=== PATIENT | female | born 1965 | race Caucasian/White ===

== ENCOUNTER 2017-12-04 07:47 | Day surgery (SDC) | payer OTHER ==
[2017-12-04 09:23] LABS: ADD MAN DIFF? NO
[2017-12-04 09:26] LABS: BASOPHILS % 0.2 % (0.0-2.0); EOSINOPHILS # 0.2 10^3/ul (0.0-0.5); EOSINOPHILS % 3.6 % (0.0-7.0); HEMATOCRIT 36.6 % (37.0-47.0); HEMOGLOBIN 12.2 g/dl (12.0-16.0); LYMPHOCYTES # 1.9 10^3/ul (0.8-2.9); LYMPHOCYTES % 36.1 % (15.0-51.0); MEAN CORPUSCULAR HEMOGLOBIN 32.4 pg (29.0-33.0); MEAN CORPUSCULAR HGB CONC 33.3 g/dl (32.0-37.0); MEAN CORPUSCULAR VOLUME 97.1 fl (82.0-101.0); MEAN PLATELET VOLUME 12.3 fl (7.4-10.4); MONOCYTE # 0.4 10^3/ul (0.3-0.9); MONOCYTES % 6.8 % (0.0-11.0); NEUTROPHIL # 2.8 10^3/ul (1.6-7.5); NEUTROPHILS % 52.9 % (39.0-77.0); PLATELET COUNT 165 10^3/UL (140-415); RED BLOOD COUNT 3.77 10^6/ul (4.20-5.40); RED CELL DISTRIBUTION WIDTH 12.4 % (11.5-14.5)
[2017-12-04 09:26] LABS: WHITE BLOOD COUNT 5.3 10^3/ul (4.8-10.8)
[2017-12-04] MEDS ORDERED: PROPOFOL 20 ML (12:45)
[2017-12-04] MEDS ORDERED: MIDAZOLAM 1 MG/ML 2 ML INJ (12:45)
[2017-12-04] MEDS ORDERED: ONDANSETRON 4 MG INJ (12:46)
[2017-12-04] MEDS ORDERED: CEFAZOLIN 1 GM INJ (12:46)
[2017-12-04] MEDS ORDERED: METOCLOPRAMIDE 10 MG INJ (12:46)
[2017-12-04] MEDS ORDERED: KETOROLAC 30 MG INJ (13:04)
[2017-12-04] MEDS ORDERED: FENTAnyl 50 MCG/ML VIAL (13:04)
[2017-12-04 13:17] LABS: ADD UMIC YES; UR ASCORBIC ACID NEGATIVE (NEGATIVE); UR BILIRUBIN (Dip) NEGATIVE (NEGATIVE); UR BLOOD (Dip) 2+ mg/dL (NEGATIVE); UR CLARITY CLEAR (CLEAR); UR COLOR STRAW (YELLOW); UR GLUCOSE (Dip) NEGATIVE (NEGATIVE); UR KETONES (Dip) NEGATIVE (NEGATIVE); UR LEUKOCYTE ESTERASE (Dip) NEGATIVE Leu/ul (NEGATIVE); UR NITRITE (Dip) NEGATIVE (NEGATIVE); UR RBC 1 /HPF (0-5); UR SPECIFIC GRAVITY (Dip) 1.005 (1.003-1.030); UR TOTAL PROTEIN (Dip) NEGATIVE (NEGATIVE); UR UROBILINOGEN (Dip) NEGATIVE (NEGATIVE); UR WBC 0 /HPF (0-5)
[2017-12-04] MEDS ORDERED: HYDROmorphONE (0.2 MG/ML) 10ML SYG IV ×2 (13:30)
[2017-12-04] MEDS ORDERED: OXYCODONE/ACETAMINOPHEN (5/325) TAB PO ×2 (13:30)
[2017-12-04] MEDS ORDERED: ONDANSETRON 4 MG INJ IV (13:30)
[2017-12-04] MEDS ORDERED: METOCLOPRAMIDE 10 MG INJ IV (13:30)
[2017-12-04] MEDS: HYDROmorphONE (0.2 MG/ML) 10ML SYG IV (13:42)
== END 2017-12-04 15:06 | disposition home or self-care (01) ==
LOC: SDS 07:47
DX: M65.332 Trigger finger, left middle finger (principal)
CPT/HCPCS: 26055; 81001; 85025